=== PATIENT | male | born 1960 | race Caucasian/White ===

== ENCOUNTER 2020-05-31 06:31 | Day surgery (SDC) | payer BC ==
[2020-05-30 09:49] LABS: BASOPHILS % (AUTO) 0.5 % (0-1); EOSINOPHILS % (AUTO) 0.1 % (0-6); HEMATOCRIT 43.6 % (42.0-52.0); HEMOGLOBIN 15.2 g/dl (14.0-17.9); LYMPHOCYTES # (AUTO) 1.1 X10'3 (1.1-4.8); LYMPHOCYTES % (AUTO) 13.4 % (21-51); MEAN CORPUSCULAR HEMOGLOBIN 35.2 PG (27.0-31.0); MEAN CORPUSCULAR HGB CONC 34.9 g/dL (33.0-36.5); MEAN CORPUSCULAR VOLUME 100.9 FL (78-98); MEAN PLATELET VOLUME 6.5 FL (7.4-10.4); MONOCYTES # (AUTO) 0.7 X10'3 (0-0.9); MONOCYTES % (AUTO) 8.1 % (2-12); NEUTROPHILS # (AUTO) 6.4 X10'3 (1.8-7.7); NEUTROPHILS % (AUTO) 77.9 % (42-75); PLATELET COUNT 210 X10'3 (140-440); RED BLOOD COUNT 4.32 X10'6 (4.70-6.10); RED CELL DISTRIBUTION WIDTH 12.9 % (11.5-14.5); WHITE BLOOD COUNT 8.2 X10'3 (4.5-11.0)
[2020-05-30 09:53] LABS: ALBUMIN 3.5 G/DL (3.4-5.0); ANION GAP 9 (8-16); BLOOD UREA NITROGEN 13 MG/DL (7-18); BUN/CREATININE RATIO 14.8 (5.4-32.0); CALCIUM 8.3 MG/DL (8.5-10.1); CHLORIDE 97 MMOL/L (99-107); CREATININE 0.88 MG/DL (0.60-1.10); GLUCOSE 99 MG/DL (70-104); POTASSIUM 3.7 MMOL/L (3.5-5.1); SODIUM 129 MMOL/L (135-145); TOTAL CARBON DIOXIDE 23.2 MMOL/L (24-32); eGFR 88 ML/MIN
[~2020-05-31] VITALS: Ht 182.9 cm; Wt 97.8 kg
[2020-05-31] VITALS (10 sets, daily range): BP systolic 124–149; BP diastolic 87–109
[~2020-05-31 06:31] MED LIST: DABI150C PO; DILT180C66 PO; FLEC100T2 PO; HYDR-4353 PO; mega red
[2020-05-31] MEDS ORDERED: LORazepam 0.5 MG tablet PO ONE (06:55)
[2020-05-31] MEDS ORDERED: MIDAZolam 1mg/ml 10ml vial IV ONE (06:55)
[2020-05-31] MEDS ORDERED: atropine 0.1mg/ml 10ml syringe IV ONE (06:55)
[2020-05-31] MEDS ORDERED: morphine 10mg/ml inj. IV ONE (06:55)
[2020-05-31] MEDS ORDERED: diphenhydrAMINE 25mg capsule PO ONE (06:55)
[2020-05-31] MEDS ORDERED: amiodarone 150mg/dext, iso-os 100 ML IV ONE (06:55)
[2020-05-31] MEDS ORDERED: ATOR40TA72 PO (07:30)
[2020-05-31] MEDS ORDERED: LISI10TA4 PO (07:30)
[2020-05-31] MEDS ORDERED: APIX5TAB3 PO (07:30)
[2020-05-31] MEDS ORDERED: PRED20TA PO (07:30)
--- NOTE | 2020-05-31 11:00 | NUR ---
Dr. Pierre telephoned. Orders received to discontinue Pradaxa on med rec, continue all other home medications as prescribed.
== END 2020-05-31 11:20 | disposition home or self-care (01) ==
LOC: SSTAY O 06:31
PROVIDERS: ATTEND Internal Medicine Cardiovascular Disease
DX: I48.0 Paroxysmal atrial fibrillation (principal); E78.5 Hyperlipidemia, unspecified; I10 Essential (primary) hypertension; G47.30 Sleep apnea, unspecified; Z79.01 Long term (current) use of anticoagulants; Z79.899 Other long term (current) drug therapy; Z98.890 Other specified postprocedural states; Z72.89 Other problems related to lifestyle
CPT/HCPCS: 36415; 80048; 85025; 85610; 92960; 93005; 94760; J2250; J2270; Q0163